=== PATIENT | male | born 1955 | race Caucasian/White ===

== ENCOUNTER 2017-03-17 18:04 | Emergency (ER) | payer OTHER ==
[~2017-03-17 18:04] MED LIST: CYCL1PAK PO; DUONI NEB; LEVA500T33 PO; PRED20 PO; ZITH250T PO
[2017-03-17 18:05] VITALS: BP 159/95; PULSE 68; RESP 14; TEMP 98.2; O2SAT 98
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
[2017-03-17] MEDS ORDERED: KETOROLAC TROMETHAMINE 60 MG/2 ML (IM) VIAL IM ONE (19:00)
[2017-03-17] MEDS ORDERED: ORPHENADRINE INJ 60 MG/2 ML AMP IM ONE (19:00)
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
[2017-03-17] MEDS ORDERED: ROBA500T PO (20:36)
[2017-03-17] MEDS ORDERED: NAPR500 PO (20:36)
== END 2017-03-17 20:49 | disposition home or self-care (01) ==
LOC: NEPD 18:04
DX: S16.1XXA Strain of muscle, fascia and tendon at neck level, initial encounter (principal); M54.30 Sciatica, unspecified side; M50.322 Other cervical disc degeneration at C5-C6 level; V43.52XA Car driver injured in collision with other type car in traffic accident, initial encounter
CPT/HCPCS: 72125; 96372; 99285; J1885; J2360; L0150